=== PATIENT | female | born 1955 | race Caucasian/White ===

== ENCOUNTER 2022-05-30 11:36 | Day surgery (SDC) | payer BC ==
--- NOTE | 2022-05-30 09:06 | HP ---
DATE OF SURGERY: 05/30/2022 HISTORY OF PRESENT ILLNESS: The patient is a 66-year-old with enlarging right neck cyst or nodule, some discomfort. She is concerned and need of biopsy and tissue diagnosis. PAST MEDICAL HISTORY: Asthma. Hypothyroidism. PAST SURGICAL HISTORY: Appendectomy. Cervical polyp removed. Hand surgery in the past. MEDICATIONS: Euthyrox. ALLERGIES: IODINE. FAMILY HISTORY: Negative for cancer and heart disease. SOCIAL HISTORY: No smoking. Occasional alcohol use denies abuse. REVIEW OF SYSTEMS: Fourteen systems reviewed. No chest pain or palpitations. Other systems negative or noncontributory as above and per preadmission questionnaire. PHYSICAL EXAMINATION: GENERAL: No acute distress. HEENT: Sclerae nonicteric. NECK: No JVD. She does have right posterior nodule or node. CHEST: Equal excursion, nonlabored breathing. CVS: Regular rate and rhythm. ABDOMEN: Soft, nontender. EXTREMITIES: No edema. NEURO: Alert, oriented, moving extremities symmetrically. PSYCH: Appropriate mood and affect. SKIN: Dry. IMPRESSION: Enlarging nodule or node right neck. She is in need of excisional biopsy. Risks and benefits explained in detail including but not limited to bleeding or infection, risk of hematoma or seroma formation, risk of wound dehiscence, risk of aches, pains, burning or numbness, risk of sensory or motor nerve irritation, scar formation or injury. Risk of skilled nursing aches, pains, burning, numbness, weakness of shoulder but not limited to. Consent obtained, will proceed with excisional biopsy of posterior lateral neck node or nodule as an outpatient.
[~2022-05-30 11:36] MED LIST: Lactated Ringers 1,000 ML IV SCH
[2022-05-30] MEDS ORDERED: Lactated Ringers 1,000 ML IV ONE (12:09)
[2022-05-30] MEDS ORDERED: CEFAZOLIN 2 GM-D5W BAG** 2 GM/50 ML ML IV SCH (12:30)
[2022-05-30] MEDS ORDERED: TORAdol 30 mg Injection ONE (15:07)
[2022-05-30] MEDS ORDERED: Zemuron 100 MG/10 ML ONE (15:07)
[2022-05-30] MEDS ORDERED: DIPRIVAN 200 MG/20 ML IV ONE (15:07)
[2022-05-30] MEDS ORDERED: SUBLIMAZE 100 MCG/2 ML ONE (15:07)
[2022-05-30] MEDS ORDERED: Decadron 4 MG INJ ONE (15:07)
[2022-05-30] MEDS ORDERED: Zofran 4 MG/2 ML VIAL ONE (15:07)
[2022-05-30] MEDS ORDERED: BRIDION 200MG/2ML IV ONE (15:07)
[2022-05-30] MEDS ORDERED: Xylocaine-Mpf 2% 5 Ml Vial ONE (15:07)
[2022-05-30] MEDS ORDERED: Sensorcaine 0.25% 10 ML ONE (15:29)
[2022-05-30] MEDS ORDERED: Ephedrine Sulfate 50 MG/ML ONE (15:37)
[2022-05-30 17:06] VITALS: BP 143/86; PULSE 94; O2SAT 95
--- NOTE | 2022-05-31 08:38 | OP ---
SURGERY DATE/TIME: 05/30/2022 1506 PREOPERATIVE DIAGNOSIS: Right neck enlarging node or nodule. POSTOPERATIVE DIAGNOSES: Right neck enlarging node or nodule. PROCEDURES: Excisional biopsy of enlarging, abnormal node or nodule (approximately 2.6 cm with margins), path pending. SURGEON: Dr. Bryon Moe. ANESTHESIA: General. 0.25% Marcaine local. ESTIMATED BLOOD LOSS: Minimal. INDICATIONS: As noted above. Risks and benefits explained in detail but not limited to. The site was confirmed in the preoperative holding area. DESCRIPTION OF PROCEDURE AND FINDINGS: She is taken to the operating room. General anesthesia introduced. Her neck is prepped and draped in usual sterile fashion. After official time out and no disagreement with planned procedure, a transverse incision made. Dissection carried down through subcu to the posterior edge of the platysma. Directly on top of this large normal node or nodule was slowly and carefully mobilized feeling the tiny lymphatics and arterioles and venules into and out of it with handheld LigaSure device mobilizing well away from the other structures staying directly on the capsule. Whether this is abnormal adenopathy or some other nodule is unclear. It is definitely abnormal. It was sent for path to be processed for both histology for path as well as lymph node protocol for flow cytometry as I felt this was lisa tissue as well culture and lymph node protocol. The wound is irrigated out. Good hemostasis noted. The subcu was closed with 3-0 Vicryl. Skin closed with 4-0 Vicryl. Steri-Strips and sterile dressing applied. 0.25% Marcaine local infiltrated around it. The patient tolerated the procedure well. There were no immediate complications. There was no family out in the waiting area when I went out there initially. I will return later. I will finish the prescriptions and then see if there is anyone there to talk to.
== END 2022-05-30 17:15 | disposition home or self-care (01) ==
LOC: SDC 11:36
PROVIDERS: ATTEND Surgery
DX: D36.11 Benign neoplasm of peripheral nerves and autonomic nervous system of face, head, and neck (principal); R22.1 Localized swelling, mass and lump, neck
CPT/HCPCS: 87070; 87075; J0690; J1100; J1885; J2405; J2704; J3010